=== PATIENT | male | born 1960 | race Caucasian/White ===

== ENCOUNTER → 2018-09-02 | Outpatient (CLI) | payer BC ==
[~2018-09-02] VITALS: Ht 182.9 cm; Wt 103.0 kg
[~2018-09-02] MED LIST: ASPIR 8181 MG PO; ATORVASTATIN CA40 MG PO; CELEXA20 MG PO; FISH OIL 1,001000 M2 PO; JARDIANCE10 MG PO; LEVEMIR SUBQ; LISINOPRIL10 MG PO; METFORMIN HCL500 MG PO
[2018-09-02 06:59] VITALS: BP 154/87
[2018-09-02 07:08] LABS: HEMATOCRIT 41.6 % (42.0-52.0); HEMOGLOBIN 14.3 gm/dL (14.0-18.0); MCHC 34.3 g/dL (28.0-37.0); MCV 84.6 fL (80.0-100.0); RBC 4.91 mil/uL (4.50-6.00); RDW 14.3 % (10.5-14.5); WBC 9.3 thou/uL (4.0-11.0)
[2018-09-02 07:17] LABS: CALCIUM 9.8 mg/dL (8.5-10.1); CREATININE 0.9 mg/dL (0.7-1.3)
--- NOTE | 2018-09-02 08:50 | EKG ---
[place] [address] [facility] [place] [address] ELECTROCARDIOGRAM REPORT Name: NOÉ SANTIAGOKATHY HUNTLEY Room #: REG [facility] MicheleRastaAna PaulaRasta#: [id number] ������������������ Admission: 09/02/18 ������������������ Attend Phys: Stephen Zarate MD, Discharge: ������������������ Date of : 64 Report #: [id number] ����������������������������������������������������������������� [id number] THIS REPORT FOR: //name// [facility] Test Date: 2018-09-02 Test Time: 07:08:36 Pat Name: CARSON SANTIAGO Department: Room: Gender: M Hedge Trimmer: Ana Paula GRIFFITH : 1960 Requested By: Stephen Zarate Order Number: [id number] MD: Nicola Martinez Measurements Intervals [place] Rate: 81 P: 42 OR: 171 QRS: 31 QRSD: 86 T: 35 QT: 367 QTc: 426 Interpretive Statements Sinus rhythm Normal tracing No previous ECG available for comparison Electronically Signed On 09-02-2018 8:50:32 CDT by Nicola Martinez [email or web address] ��������������������������������������������� <ELECTRONICALLY SIGNED> ���������������������������������������� By: Nicola Martinez MD, [facility] ��������������������������������������������� 09/02/18 0850 0708 7 Nicola Martinez MD, FACC /EPI
--- NOTE | 2018-09-02 17:16 | CATHLAB ---
[facility] [address] [place] [address] INVASIVE PROCEDURE REPORT Name: PAMELACARSON LEE Room #: REG Gennaro#: [id number] ������������� Admission: 09/02/18 ������������� Attend Phys: Stephen Zarate, Discharge: ��� ������������� ��� Date of : 64 Date of Service: 09/02/18 1716 �� Report #: [id number] �������� ��������������������������������������������[id number] THIS REPORT FOR: //name// APPROVED REPORT Study performed: 09/02/2018 08:14:39 Patient Details Patient Status: Out-Patient Room #: The patient is a 58 year-old male Event Personnel Stephen Zarate Resource Manager, Alondra Ramos RN, Ana Arzate RN RN, Ashley Cowan Monitor, Corinne Wynn HANDS HANGER Scrub Procedures Performed Art Access - R femoral artery* 11957 Initial Mod Sed Same Phys/QHP Gr5y 271242 Left Heart Cath w/or w/o Coronaries [id number] [facility] Aortogram Abdominal Peripheral Angio 360346 Hemostasis w/ Mynx Indication Chest pain Procedure Narrative The patient was brought electively to the Cardiac Catheterization Laboratory and was prepped and draped in a sterile manner. The Right Groin^ was infiltrated with 1% Lidocaine subcutaneous anesthesia. A PINNACLE 6FR Sheath #[id number] sheath was inserted into the . Coronary angiography was performed using coronary diagnostic catheters. The right coronary system was accessed and visualized with a JR 4 catheter. The left coronary system was accessed and visualized with a JL 4 catheter. The left ventricle was accessed and visualized with a Pigtail catheter. Left ventriculogram was performed in PIÑA projection. An aortogram of the abdominal aorta was performed. Pre-demployment femoral angiogram was performed . Closure device was deployed with a 6 Fr Mynx. The patient tolerated the procedure well and there were no complications associated with the procedure. There was no hematoma. Intraoperative Conscious Sedation Sedation start time: 09:00 Case end Time: 09:20 Fentanyl 50 mcg Versed 1 mg [facility] [address] [place] [address] INVASIVE PROCEDURE REPORT Name: CARSON SANTIAGO Room #: REG [facility]#: [id number] ������������� Admission: 09/02/18 ������������� Attend Phys: Stephen Zarate, Discharge: ��� ������������� ��� Date of : 64 Date of Service: 09/02/18 1716 �� Report #: [id number] �������� ��������������������������������������������[id number] Fluoro Time: 2.06 minutes Dose: DAP 6028.00 cGycm2 765 mGy Contrast Type and Amount: Omnipaque 120 ml Hemodynamics The aortic pressure is 168/85 mmHg with a mean of 107 mmHg. The left ventricular pressure is 143/7 mmHg with a mean of mmHg. The left ventricular end diastolic pressure is 15 mmHg. Conclusion #1 normal left ventricular size with subtle anterior wall apical wall leg EF 55% #2 abdominal aortogram intact without aneurysm. Single bilateral renal arteries appear patent. 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 #5 large dominant circumflex artery is widely patent. Provides some collateral filling to the LAD at the apex #6 there is a nondominant right but an acute marginal branch provides filling to the distal half of the LAD and somewhat of a brisk fashion. Recommendations and plan: Continue aggressive risk factor modification. There is no indication for intervention here. He is asymptomatic. There is limited anterior apical ischemia but this vessels well filled in and LV function is normal. This is a flush occlusion would not be amenable to [id number] not very amenable would be technically difficult. I suspect this is also long duration. Continue aggressive medical therapy. Did initiate S GLT 2 inhibitors for his diabetes will defer to his primary and Dr. Gordillo his control systems developer in [place]. ��������������������������������������������� <ELECTRONICALLY SIGNED> ���������������������������������������� By: Stephen Zarate MD, [facility] ��������������������������������������������� 09/02/181715 15 15 Stephen Zarate MD, FACC /INF
== END | disposition home or self-care (01) ==
LOC: CATH 06:35
PROVIDERS: Internal Medicine Cardiovascular Disease
DX: I25.10 Atherosclerotic heart disease of native coronary artery without angina pectoris (principal); I10 Essential (primary) hypertension; E78.5 Hyperlipidemia, unspecified; E11.9 Type 2 diabetes mellitus without complications; F41.9 Anxiety disorder, unspecified; Z87.891 Personal history of nicotine dependence; Z79.4 Long term (current) use of insulin; Z90.49 Acquired absence of other specified parts of digestive tract; Z82.49 Family history of ischemic heart disease and other diseases of the circulatory system; Z98.890 Other specified postprocedural states; Z79.899 Other long term (current) drug therapy; Z88.0 Allergy status to penicillin; Z88.8 Allergy status to other drugs, medicaments and biological substances; Z79.82 Long term (current) use of aspirin